=== PATIENT | female | born 1990 ===

== ENCOUNTER 2020-11-01 08:00 | Outpatient (RCR) | payer OTHER, SELFPAY ==
[2020-10-11 09:13] VITALS: BMI 25.8
--- NOTE | 2020-10-11 12:55 | PC.ADMIT ---
Patient is a 30 year old transgendered female who was referred to [facility] by [facility] inpatient unit where patient was admitted d/t increase in severe depression with SI, thoughts to hang self with a rope. Patient reportedly nailed a rope to a wall and a friend saw the rope and called 911. Contributing to patients increase in depressive symptoms include recent breakup with partner whom patient moved in with in April 2020. Patient moved to this area from [place]. Patient has been increasing ETOH and marijuana use to deal with her symptoms. She has a hx of chronic SI and dx of BPD and PTSD. She also has a hx of 3 [facility] hospitalizations. Patient is alert and oriented x4. Calm and cooperative. Presents with depressed mood and affect. Stated the program is going well for her thus far. Denied current SI or thoughts to harm herself. Gave verbal permission to email her a copy of her safety plan and patient has the crisis number if needed. Patient did reports some cravings for ETOH and marijuana. Gave her information about online substance groups and strongly encouraged her to attend these groups in addition to the program for more support. Patient is also looking into [facility] for more support. Medications reconciled with [facility] d/c medication list and patient. Patient reports she is taking medications as prescribed.
--- NOTE | 2020-10-12 13:38 | HO.PHPPROGNO ---
Subjective Subjective Date of Service: 10/16/20 Reason For Visit: depression Interim History: Patient presents for admission to [facility] following recent psychiatric admission for worsening depression and suicidal ideation Intake assessment reviewed prior to visit. patient was started on Lamictal during admission. Discharged on 10/06 Patient reports long history of depression and previous psychiatric admissions, including previous attempt to hang herself several years ago. She reports the end of her relationship as a precipitant to most recent decline and while she feels in a better place than she was prior to admission, she and her ex still reside in the same place together. Previous medicaation trials include: lexapro, zoloft, seroquel, mirtazipine and prazosin. States that all were ineffective. Current dose of Lamictal is 50mg QD with plan to increase to 75mg on as directed by hospital provider. She reports that currently her anxiety and nightmares are most distressing sx. denies any chronic medical issues Medication Compliance: Yes Side effects from medications: No Attending Groups: Yes Review of Systems Constitutional: Reports as per HPI and Reports difficulty sleeping Mental Status Exam Mental Status Exam Patient Appearance: Well Grooomed and Appropriate Patient Orientation: Person, Place, Time and Situation Level of Consciousness: Awake and Appropriate Patient Behavior: Appropriate and Guarded Mood Description: Apprehensive Affect Description: Anxious and Apprehensive Ability to Follow Directions: Excellent Speech Pattern: Clear Hallucinations: None Delusions: Not Present Thought Process: Goal Oriented Thought Content: positive for Intact Depressive Symptoms: Increased Anxiety, Difficulty Sleeping and Unhappiness Judgement: Fair Diagnostics Vital Signs (24Hr): Body Mass Index 25.8 Assessment & Plan Assessment & Plan (1) MDD (major depressive disorder), recurrent episode, moderate: Status: Acute Code(s): F33.1 - Major depressive disorder, recurrent, moderate Assessment and Plan: Plan to start Prazosin BID to address anxiety during the day and nightmares at night patient preferred to minimize number of medications being prescribed so we will trial this first. If daytime dose is ineffective or has side effects we can d/c and consider other option to address anxiety (2) Post traumatic stress disorder (PTSD): Status: Acute Code(s): F43.10 - Post-traumatic stress disorder, unspecified Certification I certify that partial hospital treatment is medically necessary due to the symptoms and problems resulting from the patient's mental illness and the failure to treat the patient at the partial hospital level of care would likely result in the patient requiring inpatient psychiatric care which could not be prevented at a less intensive level of care. Greater than 50% of the session was spent on counseling and/or coordination of care Discharge Plan Discharge Attending provider: Haris Araujo Medications: New prazosin 1 mg capsule 1 mg PO BID Qty: 14 RF: 0 No Action lamotrigine 25 mg Tablet See Rx Instructions .ROUTE .COMPLEX RF: 0 progesterone micronized 200 mg capsule 1 cap PO BEDTIME RF: 0 spironolactone 50 mg Tablet 50 mg PO BID RF: 0 estradiol valerate 20 mg/mL Syringe 4 mg IM QWEEK RF: 0 Telehealth Telehealth Location of provider rendering services: practice address Location of patient: address on file Patient Identification confirmed using: Name, : Yes Telehealth method: video Patient verbally consented to treatment: Yes Patient verbally consented to billing insurance company: Yes Time spent with patient (mins): 30
--- NOTE | 2020-10-15 14:43 | PC.NURSE ---
I called and spoke to pt. about treatment and schedule. She said she is liking the groups, and finds them helpful, but feels a bit uncomfortable with new people at times. She had an intake at [facility] yesterday for therapy and med management. She said her mood is low, and that she's had some bad days since discharge from inpatient. She reported positive feelings around her ability to cope with and come out of these bad days feeling better. Discussed support groups for staying sober and I [facility], [facility], and [facility] for support.
--- NOTE | 2020-10-19 15:03 | PC.NURSE ---
I called and spoke with patient after she spoke about feeling unsafe in group. She said she does not feel in danger in any way of being harmed physically by her partner, but feels unseen and unheard, and generally invalidated by her partner. She also said she doesn't feel at risk to suicide or self harm in any way despite vague, passive SI. She has no plan or intent. She said she is thinking about the possibility of respite, and might call the safe passage hotline for help. I gave her the number for [facility], the [facility] respite, and for the [facility]. She said she's call if she needs further assistance, and that right now she is exploring options.
--- NOTE | 2020-10-20 20:39 | P.PNPSP_ITS ---
Subjective Subjective Date of Service: 10/20/20 Reason For Visit: depression Interim History: Met with Kell via Telehealth. Kell reports that she feels less overwhelmed and less depressed. She continues to endorse nightmares and anxious mood at times during the day. She reports taking prazosin 1mg po qhs but continues to experience nightmares. She denies dizziness. Although she has no way of checking BP at home. She denies SI/HI. She reports fair appetite. She reports finding PHP program helpful in that she is able to hear others experiences of similar situation. Medication Compliance: Yes Side effects from medications: No Review of Systems Review of Systems Yes all other systems are reviewed and are negative Mental Status Exam Mental Status Exam Narrative: Appearance: casually groomed, good hygiene, in NAD behavior: cooperative Speech: clear, normal rate/rhythm, spontaneous Psychomotor: no agitation or retardation noted TP: linear TC: no signs of psychosis, feeling less overwhelmed, more future oriented. Mood: better Affect: brighter at times AH/VH: none Delusions: none Insight/judgment: fair x 2. Memory/cog: alert, oriented x 4. Diagnostics Vital Signs (24Hr): Body Mass Index 25.8 Assessment & Plan Assessment & Plan (1) Post traumatic stress disorder (PTSD): Status: Acute Code(s): F43.10 - Post-traumatic stress disorder, unspecified Assessment and Plan: 1. Continue Lamictal 100mg po daily 2. Pt instructed to increase prazosin from 1mg po qhs to 2mg po qhs. Advised pt to lower dose to 1mg po qhs if feeling dizzy or light headed. 3. We discussed starting antidepressant but pt reports multiple medication tr ials with limited efficacy. Patient educated on: diagnosis and medication risk/benefits Certification I certify that partial hospital treatment is medically necessary due to the symptoms and problems resulting from the patient's mental illness and the failure to treat the patient at the partial hospital level of care would likely result in the patient requiring inpatient psychiatric care which could not be prevented at a less intensive level of care. Greater than 50% of the session was spent on counseling and/or coordination of care Discharge Plan Discharge Attending provider: Haris Araujo Medications: New prazosin 1 mg capsule 1 mg PO BID Qty: 14 RF: 0 No Action lamotrigine 25 mg Tablet See Rx Instructions .ROUTE .COMPLEX RF: 0 progesterone micronized 200 mg capsule 1 cap PO BEDTIME RF: 0 spironolactone 50 mg Tablet 50 mg PO BID RF: 0 estradiol valerate 20 mg/mL Syringe 4 mg IM QWEEK RF: 0 Telehealth Telehealth Location of provider rendering services: practice address Location of patient: address on file Patient Identification confirmed using: Name, : Yes Telehealth method: video Patient verbally consented to treatment: Yes Patient verbally consented to billing insurance company: Yes Patient informed of any privacy concerns related to visit: Yes Time spent with patient (mins): 15
--- NOTE | 2020-10-25 15:15 | PC.NURSE ---
I called and spoke with pt after she looked sad and reported thoughts of self harm in the third group. She reported feeling triggered emotionally when a peer expressed support for bigotry in group, and then when talking about nonjudgmental thinking in group, which led her to think about self hatred and brought up gender dysphoria. She reported a desire to self harm, but not to drink alcohol or suicide. She reported no intent to self harm, and an intent to stay safe. Discussed options for coping. Pt elected to take a brief nap, and agreed to reach out to staff or crisis if she started fearing she might act on thoughts to self harm.
--- NOTE | 2020-10-26 13:56 | HO.PHPPROGNO ---
Subjective Subjective Date of Service: 10/26/20 Reason For Visit: depression Interim History: Met with Kell via Telehealth. Pt reports significant improved in symptoms of depression including decreased depressed mood, decrease hopelessness/helplessnes. She denies suicidal ideation. She continues to report nightmares at night. She reports sleeping from 9pm-7am but sleep not restful due to nighmares. Last visit we had discussed increasing prazosin to 2mg po qhs but pt reports she did not have enough neither she notified this check writer salesperson. Sent rx to [facility] in [place] for prazosin 2mg po qhs. Review of Systems Review of Systems Yes all other systems are reviewed and are negative Mental Status Exam Mental Status Exam Narrative: Appearance: casually groomed, good hygiene, in NAD behavior: cooperative Speech: clear, normal rate/rhythm, spontaneous Psychomotor: no agitation or retardation noted TP: linear TC: no signs of psychosis, feeling less overwhelmed, more future oriented. Mood: better Affect: brighter at times AH/VH: none Delusions: none Insight/judgment: fair x 2. Memory/cog: alert, oriented x 4. Patient Appearance: Well Grooomed and Appropriate Patient Orientation: Person, Place, Time and Situation Level of Consciousness: Awake and Appropriate Patient Behavior: Appropriate and Guarded Mood Description: Apprehensive Affect Description: Anxious and Apprehensive Ability to Follow Directions: Excellent Speech Pattern: Clear Diagnostics Vital Signs (24Hr): Body Mass Index 25.8 Assessment & Plan Assessment & Plan (1) Post traumatic stress disorder (PTSD): Status: Acute Code(s): F43.10 - Post-traumatic stress disorder, unspecified Assessment and Plan: 1. Continue Lamictal 100mg po qhs 2. Increase Prazosin to 2mg po qhs for nightmares 3. We discussed starting antidepressant but pt reports multiple medication trials with limited efficacy. Certification I certify that partial hospital treatment is medically necessary due to the symptoms and problems resulting from the patient's mental illness and the failure to treat the patient at the partial hospital level of care would likely result in the patient requiring inpatient psychiatric care which could not be prevented at a less intensive level of care. Greater than 50% of the session was spent on counseling and/or coordination of care Discharge Plan Discharge Attending provider: Haris Araujo Medications: New prazosin 2 mg capsule 2 mg PO BEDTIME Qty: 14 RF: 0 No Action lamotrigine 25 mg Tablet See Rx Instructions .ROUTE .COMPLEX RF: 0 progesterone micronized 200 mg capsule 1 cap PO BEDTIME RF: 0 spironolactone 50 mg Tablet 50 mg PO BID RF: 0 estradiol valerate 20 mg/mL Syringe 4 mg IM QWEEK RF: 0 Telehealth Telehealth Location of provider rendering services: practice address Location of patient: address on file Patient Identification confirmed using: Name, : Yes Telehealth method: video Patient verbally consented to treatment: Yes Patient verbally consented to billing insurance company: Yes Patient informed of any privacy concerns related to visit: Yes Time spent with patient (mins): 15
--- NOTE | 2020-10-27 14:26 | PC.NURSE ---
In search of a transgender support group, I emailed a contact listed for [facility] trans women ([email or web address]), and I called Brit listed under [facility] trans [place]. Both contacts were given to me from [facility]'s Trans resources. I did not disclose pt's name or info.
--- NOTE | 2020-10-27 14:58 | PC.NURSE ---
I called and LM for pt to pls call re: schedule, possible resources for support, etc. Pt also spoke with ANGEL Molina following the 4th group today. Azeb said she was struggling but able to contract for safety.
--- NOTE | 2020-10-27 15:14 | PC.NURSE ---
I received a message back from Brit from the [facility] support group of [facility] associated with [facility]. Brit said they work with Dea Clemens (I don't know who that is), and that they are an active support group on facebook ([email or web address]). Brit said pt can call her at [phone], or go to [employer] on facebook to join. According to my records, the group runs every of each month at 7pm.
--- NOTE | 2020-10-27 15:15 | PC.NURSE ---
The client was struggling with severe PTSD symptoms during the end of the last group. She stayed past the end and we reviewed skills that she will use. Agrees to use grounding and distraction. She will play music and will take a walk. She reports that she is safe and will call crisis if needed. She was given the number for crisis. She states that she will be in groups tomorrow.
--- NOTE | 2020-10-28 09:35 | PC.NURSE ---
Pt called and LM stating she will not be attending [facility] today, as she doesn't feel well. I called her back and spoke to her. She was soft-spoken and sounded in distress. She said she didn't sleep much at all last night, is struggling, and having urges to self harm. She said she has a sore throat and will try to get some sleep. When I asked, she said she has not self harmed and doesn't plan to. She said she is not having SI. She reported struggling with gender and voice dysphoria, and said she doesn't feel safe discussing this in the group, particularly as there are some new members with whom she doesn't feel so comfortable. She said she is sober. We discussed use of self soothing to cope. She agreed to contact crisis if she feels unsafe, or to call staff. I told her I would call her this afternoon to see how she is and discuss some aftercare resources, including a trans support group.
--- NOTE | 2020-10-28 14:58 | PC.NURSE ---
I called and spoke to pt as planned. She sounded a lot more animated, and reported feeling better physically and emotionally. She believes her throat hurt this morning from crying, rather than from being ill. She said she does not have SI, and that she is still having urges to self harm but that she didn't and wont act on them. She said she is sober. She is struggling with gender and voice dysphoria. Discussed ways to get support around this. We discussed aftercare/ support group options, and her schedule. She will start IOP LOC tomorrow, and tentatively discharge on 11/09/20.
--- NOTE | 2020-10-29 13:47 | PC.NURSE ---
Pt left the first group at 10:05. after typing I cant do this right now in the chat, and after turning her camera off. I called her following the group. She said she did not leave due to feeling triggered by peers or by group content. She said she had not been paying attention to the group, as she had been attempting to re-order groceries to be delivered that had been accidentally cancelled. She said she wanted to get this done so that she could attend to group, as she was consumed with catastrophic thoughts about not having food . She apologized for doing this while in the group. I expressed concern that the group might be too much for her at this time, or overstimulating or triggering, and once again gave her permission to discharge, stressing that this would not be a failure or a premature discharge. She was quite adamant that she would like to continue. She said, I had a couple bad days and I don't want that to take me away from the group. I like the group and I like the coping skills . She said she will attend the next group, and that she was able to re-order her groceries and feels better.
--- NOTE | 2020-11-01 16:16 | HO.PHPPROGNO ---
Subjective Subjective Date of Service: 11/01/20 Reason For Visit: depression Interim History: Pt reports no difference in sx mgt with medications. Nightmares continue with Prazosin. Reports 8 hours of sleep without feeling rested. Lamictal use for ~ 30 days with no real change. Denies SI, plan, intent, finds groups to be helpful, although recently lost peers which she felt connected to in the group. Hx trials of Mirtazapine with increase in sx, Sertraline, Seroquel, Escitalopram-she tried 5 mg for ~10 days and did not get to finish trial-she is interested in a new trial. Denies medical symptoms or concerns today, denies substance use. Target sx identified-nightmares, anxiety,depressive sx. Medication Compliance: Yes Side effects from medications: No Attending Groups: Yes Review of Systems Review of Systems Yes all other systems are reviewed and are negative Psychiatric: Reports abnormal sleep pattern, Reports anxiety, Reports depression and Reports other (nightmares) Mental Status Exam Mental Status Exam Patient Appearance: Appropriate Patient Orientation: Person, Place, Time and Situation Level of Consciousness: Alert Patient Behavior: Appropriate Mood Description: Constricted Affect Description: Constricted Patient Cognition Impaired: No Ability to Follow Directions: Good Speech Pattern: Spontaneous Speech Memory Description: Intact Hallucinations: None Delusions: Not Present Thought Process: Intact Thought Content: positive for Intact Depressive Symptoms: Increased Anxiety and Difficulty Sleeping Judgement: Good Diagnostics Vital Signs (24Hr): Body Mass Index 25.8 Assessment & Plan Assessment & Plan (1) Post traumatic stress disorder (PTSD): Status: Acute Code(s): F43.10 - Post-traumatic stress disorder, unspecified Assessment and Plan: Pt reports nightmares- Increase Prazosin to 3 mg HS (2) MDD (major depressive disorder), recurrent episode, moderate: Status: Acute Code(s): F33.1 - Major depressive disorder, recurrent, moderate Assessment and Plan: -Escitalopram 5 mg daily. Pt reported a ~10 day trial which was suspended due to not having a refill. She is interested in a retrial/titration. -Continue Lamictal. Certification I certify that partial hospital treatment is medically necessary due to the symptoms and problems resulting from the patient's mental illness and the failure to treat the patient at the partial hospital level of care would likely result in the patient requiring inpatient psychiatric care which could not be prevented at a less intensive level of care. Greater than 50% of the session was spent on counseling and/or coordination of care Discharge Plan Discharge Attending provider: Haris Araujo Medications: New prazosin 2 mg capsule 2 mg PO BEDTIME MDD 3 mg Bedtime Qty: 7 RF: 0 prazosin 1 mg capsule 1 mg PO BEDTIME MDD 3 mg bedtime Qty: 7 RF: 0 escitalopram oxalate 5 mg tablet 5 mg PO DAILY Qty: 7 RF: 0 No Action lamotrigine 25 mg Tablet See Rx Instructions .ROUTE .COMPLEX RF: 0 progesterone micronized 200 mg capsule 1 cap PO BEDTIME RF: 0 spironolactone 50 mg Tablet 50 mg PO BID RF: 0 estradiol valerate 20 mg/mL Syringe 4 mg IM QWEEK RF: 0 Telehealth Telehealth Location of provider rendering services: practice address Location of patient: address on file Patient Identification confirmed using: Name, : Yes Telehealth method: video Patient verbally consented to treatment: Yes Patient verbally consented to billing insurance company: Yes Patient informed of any privacy concerns related to visit: Yes Time spent with patient (mins): 15
--- NOTE | 2020-11-02 09:15 | PC.NURSE ---
Pt WILBUR stating she wont be in program today. She said she didn't sleep well last night and wants to try to sleep.
--- NOTE | 2020-11-03 09:34 | PC.NURSE ---
Pt did not show up for community meeting this morning, and she did not call. I called her and LM on her voicemail asking to pls call. I included that we will call her emergency contact if we don't hear back from her.
--- NOTE | 2020-11-03 11:52 | PC.NURSE ---
I called and left a message for pt's partner, Yuliet (emergency contact) at 10:15 am. I informed her that pt did not show for tx today, we are worried, and pls check on her and/or call me as soon as possible. At 11:40 am I tried calling pt again and she answered. She said she had been sleeping, and sounded tired. She said she had been having nightmares again and didn't sleep last night. She said she is safe, not having SI. She said she'd rather not return to treatment at this time, as she feels its no longer helping as it was in the beginning. I asked if she is still interested in TMS, as she had discussed with Lucrecia the nurse, and she said yes, definitely . I let her know that her insurance should be able to pay for transportation (PT1). I informed Lucrecia, and she said she'd relay the info and pt's number to Tori for TMS.
--- NOTE | 2020-11-04 11:22 | PC.NURSE ---
Patient interested in TMS and asked if I could set up an appointment for a consultation. Spoke to Tori Estes [facility] TMS hearing aide technician who will give patient a call regarding TMS services.
== END 2020-11-01 23:55 | disposition home or self-care (01) ==
LOC: HO.PHPA 08:00
PROVIDERS: Visit Provider Psychiatry & Neurology Psychiatry
DX: F33.1 Major depressive disorder, recurrent, moderate (principal); F43.10 Post-traumatic stress disorder, unspecified; F51.5 Nightmare disorder; Z91.5 Personal history of self-harm
CPT/HCPCS: 90791; 90853; 99212; 99213; 99214

== ENCOUNTER 2022-05-08 13:50 | Outpatient (RCR) | payer OTHER, SELFPAY | END 2023-03-19 17:22 | disposition home or self-care (01) | LOC: HO.PTMS 13:50 | PROVIDERS: Visit Provider Psychiatry & Neurology Psychiatry | DX: F32.A Depression, unspecified (principal) ==